=== PATIENT | male | born 1990 | race Caucasian/White ===

== ENCOUNTER 2023-06-17 18:54 | Emergency (ER) | payer OTHER, SELFPAY ==
[2023-06-17 19:05] VITALS: BP 166/115; PULSE 85; RESP 18; TEMP 36.6; O2SAT 97; BMI 33.9
--- NOTE | 2023-06-17 19:25 | PC.NURSE ---
Patient reports he went to [facility] to be admitted for alcohol detox. Patient states they told him to come here due to blowing too high when they checked me in. patient reports he normally drinks beer and whiskey and endorses drinking in the parking lot at [facility]. patient has no active complaints and is relaxed and cooperative.
--- NOTE | 2023-06-17 19:30 | ED.ALCOHOL1 ---
HPI - Alcohol General Chief Complaint: Alcohol Stated Complaint: Alcohol Medical Clearance Time Seen by Provider: 06/17/23 19:25 History of Present Illness HPI narrative: patient is an alcoholic and has history of HTN. States he went to [facility] to help with his alcohol addiction and they advised him to come to the ER. He has no complaint at this time. Does have a history of alcohol withdrawal manifested by headache, tremors and nausea. States he feels well now and has no complaint MD complaint: Reports alcohol intoxication Related Data Home Medications Medication Instructions Recorded Confirmed metoprolol succinate 50 mg 50 mg PO DAILY 06/17/23 06/17/23 tablet,extended release 24 hr Allergies Allergy/AdvReac Type Severity Reaction Status Date / Time No Known Drug Allergies Allergy Verified 06/17/23 19:08 Review of Systems ROS Status of ROS 10 or more systems reviewed and unremarkable except as noted in history and below PFSH PFS Social History Smoking status: Current every day smoker Exam Constitutional Vital Signs, click to edit/add: Last Vital Signs Temp 98 F 06/17/23 19:05 Pulse 85 06/17/23 19:05 Resp 18 06/17/23 19:05 BP 166/115 H 06/17/23 19:05 Pulse Ox 97 06/17/23 19:05 O2 Del Method Room Air 06/17/23 19:05 Common normals: no apparent distress, average body habitus, oriented x3, no limitations, healthy appearing, alert and well nourished Eye Common normals: PERRL, EOMs intact bilaterally and no scleral icterus Other: eyes injected bilat-mild Respiratory Common normals: normal respiratory effort, no retractions, no use of accessory muscles and clear to auscultation bilaterally Cardio Common normals: regular rate, regular rhythm, S1 normal heart sound and S2 normal heart sound GI Common normals: Normal to inspection, nondistended, normoactive bowel sounds present, soft to palpation and non-tender Extremity Common normals: normal to inspection and full ROM Neuro Common normals: oriented x3, CN's II-XII intact bilaterally, moves all extremities, no focal motor deficits and no sensory deficits noted Psych Appearance: grossly normal Course Vital Signs Vital signs: Vital Signs Temperature 98 F 06/17/23 19:05 Pulse Rate 85 06/17/23 19:05 Respiratory Rate 18 06/17/23 19:05 Blood Pressure 166/115 H 02/06/24 19:05 Pulse Oximetry 97 06/17/23 19:05 Oxygen Delivery Method Room Air 06/17/23 19:05 Temperature 98 F 06/17/23 19:05 Pulse Rate 85 06/17/23 19:05 Respiratory Rate 18 06/17/23 19:05 Blood Pressure 166/115 H 06/17/23 19:05 Pulse Oximetry 97 06/17/23 19:05 Oxygen Delivery Method Room Air 06/17/23 19:05 MDM - Alcohol MDM Narrative Medical decision making narrative: patient is an alcoholic and has history of HTN. states he went to [facility] for assistance with his history of alcohol abuse and they advised him to come here for medical clearance. He is asymptomatic. ETOH 303. Mild elevation of LFTs. He is resting comfortably. No distress and very cooperative. BP moderately elevated but no urgent treatment required. Urine drug screen positive for marijuana . Patient discharged back to [facility] for treatment Lab Data Labs: Lab Results 06/17/23 06/17/23 Range/Units 19:52 20:08 WBC 8.4 (4.0-11.0) 10^3/uL RBC 5.85 (4.70-6.10) 10^6/uL Hgb 17.3 (14.0-18.0) g/dL Hct 51.9 (42.0-54.0) % MCV 88.7 (80.0-94.0) fL MCH 29.6 (25.9-34.0) pg MCHC 33.3 (29.9-35.2) g/dL RDW 13.0 (11.0-15.0) % Plt Count 324 (150-450) 10^3/uL MPV 9.5 (9.5-13.5) fL Neut % (Auto) 53.9 (43.0-75.0) % Lymph % (Auto) 37.0 (20.5-60.0) % Carlton % (Auto) 6.6 (1.7-12.0) % Eos % (Auto) 1.3 (0.9-7.0) % Baso % (Auto) 0.8 (0.2-2.0) % Neut # (Auto) 4.6 (1.4-6.5) 10^3/uL Lymph # (Auto) 3.1 (1.2-3.8) 10^3/uL Carlton # (Auto) 0.6 (0.3-0.8) 10^3/uL Eos # (Auto) 0.1 (0.0-0.7) 10^3/uL Baso # (Auto) 0.1 (0.0-0.1) 10^3/uL Abs Immat Gran (auto) 0.03 (0.00-0.03) 10^3/uL Imm/Tot Granulo (auto) 0.4 (0.0-0.5) % Sodium 141 (136-145) mmol/L Potassium 3.8 (3.5-5.1) mmol/L Chloride 105 (98-107) mmol/L Carbon Dioxide 23.7 (21.0-32.0) mmol/L Anion Gap 16.1 BUN 7.0 (7.0-18.0) mg/dL Creatinine 0.84 (0.70-1.30) mg/dL Est GFR ( Amer) >60 (>=60) Est GFR (Non-Af Amer) >60 (>=60) BUN/Creatinine Ratio 8.3 Glucose 89 (74-106) mg/dL Calcium 9.2 (8.5-10.1) mg/dL Total Bilirubin 0.3 (0.2-1.0) mg/dL AST 107 H (15-37) U/L ALT 188 H (16-63) U/L Alkaline Phosphatase 80 (46-116) U/L Total Protein 8.9 H (6.4-8.2) g/dL Albumin 4.3 (3.4-5.0) g/dL Globulin 4.6 g/dL Albumin/Globulin Ratio 0.9 Salicylates 5.9 (<=19.9) mg/dL Urine Opiates Screen Negative (NEGATIVE) Ur Buprenorphine Scrn Negative (NEGATIVE) Ur Oxycodone Screen Negative (NEGATIVE) Urine Methadone Screen Negative (NEGATIVE) Acetaminophen <2.0 L (10.0-30.0) ug/mL Ur Barbiturates Screen Negative (NEGATIVE) U Tricyclic Antidepress Negative (NEGATIVE) Ur Phencyclidine Scrn Negative (NEGATIVE) Ur Amphetamines Screen Negative (NEGATIVE) U Methamphetamines Scrn Negative (NEGATIVE) U Benzodiazepines Scrn Negative (NEGATIVE) Urine Cocaine Screen Negative (NEGATIVE) U Cannabinoids Screen Positive A (NEGATIVE) Ethanol Quant 303 mg/dL Discharge Plan Discharge Chief Complaint: Alcohol Clinical Impression: Alcoholic intoxication, Hypertension Patient Disposition: Home, Self-Care Prescriptions / Home Meds: No Action metoprolol succinate 50 mg tablet extended release 24 hr 50 mg PO DAILY Instructions: Alcohol Intoxication (DC), Hypertension (ED) Additional Instructions: Patient is medically clear for rehab Stand Alone Forms: Portal Instructions Referrals: Physician,Non-Staff, MD [Primary Care Provider] - 1 week
--- NOTE | 2023-06-17 19:35 | ECG_ITS ---
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
[2023-06-17 20:26] LABS: Basophils Absolute Auto 0.1 10^3/uL (0.0-0.1); Basophils Percent Auto 0.8 % (0.2-2.0); Eosinophils Absolute Auto 0.1 10^3/uL (0.0-0.7); Eosinophils Percent Auto 1.3 % (0.9-7.0); Hematocrit 51.9 % (42.0-54.0); Hemoglobin 17.3 g/dL (14.0-18.0); Immature Granulocytes Abs Auto 0.03 10^3/uL (0.00-0.03); Immature Granulocytes Pct Auto 0.4 % (0.0-0.5); Lymphocytes Absolute Auto 3.1 10^3/uL (1.2-3.8); Mean Corpuscular HGB Conc 33.3 g/dL (29.9-35.2); Mean Corpuscular Hemoglobin 29.6 pg (25.9-34.0); Mean Corpuscular Volume 88.7 fL (80.0-94.0); Mean Platelet Volume 9.5 fL (9.5-13.5); Monocytes Absolute Auto 0.6 10^3/uL (0.3-0.8); Monocytes Percent Auto 6.6 % (1.7-12.0); Neutrophils Absolute Auto 4.6 10^3/uL (1.4-6.5); Neutrophils Percent Auto 53.9 % (43.0-75.0); Platelet Count 324 10^3/uL (150-450); Red Blood Count 5.85 10^6/uL (4.70-6.10); White Blood Count 8.4 10^3/uL (4.0-11.0)
[2023-06-17 20:37] LABS: Amphetamine Screen Urine NEGATIVE (NEGATIVE); Barbiturates Screen Urine NEGATIVE (NEGATIVE); Benzodiazepines Screen Urine NEGATIVE (NEGATIVE); Buprenorphine Screen Urine NEGATIVE (NEGATIVE); Cannabinoid Screen Urine POSITIVE (NEGATIVE); Cocaine Screen Urine NEGATIVE (NEGATIVE); Methadone Screen Urine NEGATIVE (NEGATIVE); Methamphetamines Screen Urine NEGATIVE (NEGATIVE); Opiate Screen Urine NEGATIVE (NEGATIVE); Oxycodone Screen Urine NEGATIVE (NEGATIVE); Phencyclidine Screen Urine NEGATIVE (NEGATIVE); Tricyclic Antidepressant Urine NEGATIVE (NEGATIVE)
[2023-06-17 20:46] LABS: Alanine Aminotransferase 188 U/L (16-63); Albumin Globulin Ratio 0.9; Albumin Level 4.3 g/dL (3.4-5.0); Alkaline Phosphatase 80 U/L (46-116); Anion Gap 16.1; Aspartate Amino Transferase 107 U/L (15-37); BUN Creatinine Ratio 8.3; Bilirubin Total 0.3 mg/dL (0.2-1.0); Calcium 9.2 mg/dL (8.5-10.1); Carbon Dioxide 23.7 mmol/L (21.0-32.0); Chloride 105 mmol/L (98-107); Estimated GFR (African America >60 (>=60); Estimated GFR (Non-African Ame >60 (>=60); Globulin 4.6 g/dL; Glucose 89 mg/dL (74-106); Potassium 3.8 mmol/L (3.5-5.1); Sodium 141 mmol/L (136-145); Total Protein 8.9 g/dL (6.4-8.2)
[2023-06-17 20:48] LABS: Ethanol 303 mg/dL; Salicylate 5.9 mg/dL (<=19.9)
[2023-06-17 20:50] LABS: Acetaminophen <2.0 ug/mL (10.0-30.0)
== END 2023-06-17 21:18 | disposition home or self-care (01) ==
PROVIDERS: Emergency Provider Internal Medicine
DX: F10.229 Alcohol dependence with intoxication, unspecified (principal); Y90.8 Blood alcohol level of 240 mg/100 ml or more; I10 Essential (primary) hypertension; Z79.899 Other long term (current) drug therapy; F17.210 Nicotine dependence, cigarettes, uncomplicated
CPT/HCPCS: 36415; 80053; 80179; 80307; 80320; 80329; 85025; 93005; 99285